=== PATIENT | female | born 1945 | race Caucasian/White ===

== ENCOUNTER → 2016-08-23 | Outpatient (RCR) | payer OTHER | END | disposition home or self-care (01) | LOC: PTY 10:00 | DX: M70.61 Trochanteric bursitis, right hip (principal); M70.62 Trochanteric bursitis, left hip; M41.9 Scoliosis, unspecified | CPT/HCPCS: 97035; 97110; 97161; G0283 ==

== ENCOUNTER 2016-08-31 11:00 | Outpatient (RCR) | payer OTHER | END 2016-09-20 | disposition home or self-care (01) | LOC: PTY 11:00 | DX: M70.61 Trochanteric bursitis, right hip (principal); M70.62 Trochanteric bursitis, left hip | CPT/HCPCS: 97035; 97110; 97140; G0283 ==

== ENCOUNTER 2016-09-21 10:00 | Outpatient (RCR) | payer OTHER | END 2016-10-21 | disposition home or self-care (01) | LOC: PTY 10:00 | DX: M70.61 Trochanteric bursitis, right hip (principal); M70.62 Trochanteric bursitis, left hip; M41.9 Scoliosis, unspecified | CPT/HCPCS: 97035; 97110; 97140; G0283 ==

== ENCOUNTER 2016-11-08 10:30 | Outpatient (RCR) | payer OTHER | END 2016-11-20 | disposition home or self-care (01) | LOC: PTY 10:30 | DX: M70.62 Trochanteric bursitis, left hip (principal); M70.61 Trochanteric bursitis, right hip | CPT/HCPCS: 97035; 97110; G0283 ==

== ENCOUNTER 2016-12-01 08:55 | Outpatient (RCR) | payer OTHER | END 2016-12-21 | disposition home or self-care (01) | LOC: PTY 08:55 | DX: M70.61 Trochanteric bursitis, right hip (principal); M70.62 Trochanteric bursitis, left hip | CPT/HCPCS: 97035; 97110; G0283 ==

== ENCOUNTER 2016-12-26 09:00 | Outpatient (RCR) | payer OTHER | END 2017-01-20 | disposition home or self-care (01) | LOC: PTY 09:00 | DX: M70.61 Trochanteric bursitis, right hip (principal); M70.62 Trochanteric bursitis, left hip | CPT/HCPCS: 97035; 97110; G0283 ==